=== PATIENT | female | born 1975 | race Caucasian/White ===

== ENCOUNTER → 2022-04-01 | Day surgery (SDC) | payer OTHER ==
[~2022-04-01] VITALS: Ht 167.6 cm; Wt 59.4 kg
[~2022-04-01] MED LIST: CALCIUM + VITA1 EACH PO; DGL PO; ENZYME DIGEST1 EACH PO; FLAXSEED OIL1000 M1 PO; FLONASE ALLER15.8 ML; PROBIOTIC1 EAC1 PO
[2022-04-01 09:02] LABS: HCG (URINE) SCREEN NEGATIVE (NEGATIVE)
== END | disposition home or self-care (01) ==
LOC: FAS 08:20
PROVIDERS: Student in an Organized Health Care Education/Training Program
DX: Z12.11 Encounter for screening for malignant neoplasm of colon (principal); D12.8 Benign neoplasm of rectum; K63.5 Polyp of colon; Z88.8 Allergy status to other drugs, medicaments and biological substances; Z79.899 Other long term (current) drug therapy
CPT/HCPCS: 84703; J2250; J2704; J7120